=== PATIENT | female | born 1970 | race Caucasian/White ===

== ENCOUNTER 2021-05-07 13:46 | Emergency (ER) | payer OTHER ==
[2021-05-07 14:15] VITALS: BP 116/78; PULSE 113; TEMP 98.9; BMI 32.2
[2021-05-07] MEDS ORDERED: CASIRIVIMAB/IMDEVIMAB 10 ML in SODIUM CHLORIDE 100 ML IVPB ONE (15:54)
[2021-05-07 17:37] LABS: BASO % 0.7 % (0-2.0); EOS % 2.6 % (0-4.5); HEMATOCRIT 38.3 % (32.4-45.2); HEMOGLOBIN 13.2 GM/dL (10.7-15.3); LYMPH % 24.9 % (8-40); MCH 32.4 pg (25.7-33.7); MCHC 34.4 g/dl (32.0-36.0); MEAN CELL VOLUME 94.2 fl (80-96); MEAN PLT VOLUME 7.3 fl (7.5-11.1); MONO % 13.7 % (3.8-10.2); NEUT % 58.1 % (42.8-82.8); PLATELET COUNT 350 10^3/uL (134-434); RBC 4.07 M/mm3 (3.60-5.2); RDW 13.4 % (11.6-15.6); WHITE BLOOD COUNT 7.6 K/mm3 (4.0-10.0)
[2021-05-07 17:54] LABS: BLOOD UREA NITROGEN 9.9 mg/dL (7-18); CALCIUM 8.7 mg/dL (8.5-10.1)
[2021-05-07 17:58] LABS: CREATININE 0.7 mg/dL (0.55-1.3)
== END 2021-05-07 18:40 | disposition home or self-care (01) ==
LOC: JCOVINFU 13:46
DX: U07.1 COVID-19 (principal)
CPT/HCPCS: 36415; 80048; 85025; 99284-25; M0240; Q0240